=== PATIENT | male | born 1960 | race Caucasian/White ===

== ENCOUNTER 2018-07-21 09:30 | Inpatient (IN) | payer OTHER ==
[~2018-07-21] VITALS: Ht 180.3 cm; Wt 122.7 kg
[2018-07-21] MEDS ORDERED: aspirin 81mg tab.chew PO ONE (09:50)
[2018-07-21 10:28] LABS: BASOPHILS % (AUTO) 0.6 % (0-1); EOSINOPHILS # (AUTO) 0.2 X10'3 (0-0.9); EOSINOPHILS % (AUTO) 2.7 % (0-6); HEMATOCRIT 45.1 % (42.0-52.0); HEMOGLOBIN 15.5 g/dl (14.0-17.9); LYMPHOCYTES # (AUTO) 2.1 X10'3 (1.1-4.8); LYMPHOCYTES % (AUTO) 30.9 % (21-51); MEAN CORPUSCULAR HEMOGLOBIN 30.3 PG (27.0-31.0); MEAN CORPUSCULAR HGB CONC 34.4 % (33.0-36.5); MEAN PLATELET VOLUME 8.6 FL (7.4-10.4); MONOCYTES # (AUTO) 0.5 X10'3 (0-0.9); NEUTROPHILS # (AUTO) 3.9 X10'3 (1.8-7.7); NEUTROPHILS % (AUTO) 57.8 % (42-75); PLATELET COUNT 235 X10'3 (140-440); RED BLOOD COUNT 5.12 X10'6 (4.70-6.10); RED CELL DISTRIBUTION WIDTH 12.9 % (11.5-14.5); WHITE BLOOD COUNT 6.7 X10'3 (4.5-11.0)
[2018-07-21 10:35] LABS: ALANINE AMINOTRANSFERASE 31 U/L (12-78); ALBUMIN 3.9 G/DL (3.4-5.0); ALBUMIN/GLOBULIN RATIO 1.1 (1.1-1.5); ALKALINE PHOSPHATASE 59 IU/L (46-116); ANION GAP 10 (8-16); ASPARTATE AMINO TRANSFERASE 22 U/L (10-37); BILIRUBIN,TOTAL 0.7 MG/DL (0.1-1.0); BLOOD UREA NITROGEN 16 MG/DL (7-18); BUN/CREATININE RATIO 18.6 (5.4-32.0); CHLORIDE 102 MMOL/L (99-107); CREATININE 0.86 MG/DL (0.60-1.10); GLUCOSE 108 MG/DL (70-104); POTASSIUM 3.6 MMOL/L (3.5-5.1); SODIUM 142 MMOL/L (135-145); TOTAL CARBON DIOXIDE 30.4 MMOL/L (24-32); TOTAL PROTEIN 7.4 G/DL (6.4-8.2); eGFR > 90 ML/MIN
[2018-07-21 10:36] LABS: PARTIAL THROMBOPLASTIN TIME 28 SECONDS (22-32); PROTHROMBIN TIME 10.1 SECONDS (9.0-12.0)
[2018-07-21 10:42] LABS: MAGNESIUM 2.1 MG/DL (1.5-2.4)
[2018-07-21] MEDS ORDERED: magnesium hydroxide 30ml (MOM) UD suspension PO PRN (10:55)
[2018-07-21] MEDS ORDERED: magnesium 4gm in 100ml NS 100 ML IV PRN (10:55)
[2018-07-21] MEDS ORDERED: potassium Cl 20 mEq SR tablet PO PRN ×2 (10:55)
[2018-07-21] MEDS ORDERED: potassium Cl 40MEQ/NS 500ml 500 ML IV PRN ×2 (10:55)
[2018-07-21] MEDS ORDERED: mag hydrox/Alum hydrox/simeth 30ml oral suspension PO PRN (10:55)
[2018-07-21] MEDS ORDERED: acetaminophen 325mg tablet PO PRN ×2 (10:55)
[2018-07-21] MEDS ORDERED: magnesium 1gm/100ml D5W IVPB 100 ML IV PRN (10:55)
[2018-07-21] MEDS ORDERED: clindamycin-Cleocin 900mg/D5W 50 ML IV ONE (11:05)
[2018-07-21] MEDS ORDERED: ceFAZolin 1000mg inj ONE (12:22)
[2018-07-21] MEDS ORDERED: lidocaine 1%/epinephrine 1:100,000 injection 50ml vial ONE (12:22)
[2018-07-21] MEDS ORDERED: ceFAZolin 1GM/D5W- ADD-VANTAGE 50 ML IV ONE (12:22)
[2018-07-21] MEDS ORDERED: CHLO25TA2 PO (12:50)
[2018-07-21] MEDS ORDERED: midazolam 2 mg/2 ml injection ONE ×2 (12:52→13:06)
[2018-07-21] MEDS ORDERED: proCHLORperazine 10 MG/2 ml inj ONE (12:52)
[2018-07-21] MEDS ORDERED: fentaNYL/PF 50MCG/1 ML 2ML syringe ONE ×2 (12:53→13:07)
[2018-07-21] MEDS: nystatin 15 GM powder TP SCH ×2 (13:00→20:26)
[2018-07-21] MEDS ORDERED: iohexol 350 MG/ML 50ML vial IV ONE ×2 (13:08→13:23)
[2018-07-21 15:00] VITALS: BP 145/66
[2018-07-21] MEDS ORDERED: heparin, porcine 5000 units/ml vial SQ SCH (16:00)
[2018-07-21] MEDS: K and/or MAG REPLACEMENT MC SCH (18:47)
[2018-07-21 19:00] VITALS: BP 135/48
[2018-07-21] MEDS: zinc oxide ointment 30gm tube TP SCH (20:26)
[2018-07-21 23:00] VITALS: BP 133/55
[2018-07-22] VITALS (9 sets, daily range): BP systolic 131–164; BP diastolic 59–89
[2018-07-22 05:22] LABS: BASOPHILS % (AUTO) 0.3 % (0-1); EOSINOPHILS # (AUTO) 0.2 X10'3 (0-0.9); EOSINOPHILS % (AUTO) 2.5 % (0-6); HEMATOCRIT 43.5 % (42.0-52.0); HEMOGLOBIN 14.9 g/dl (14.0-17.9); LYMPHOCYTES # (AUTO) 2.2 X10'3 (1.1-4.8); LYMPHOCYTES % (AUTO) 28.3 % (21-51); MEAN CORPUSCULAR HEMOGLOBIN 29.6 PG (27.0-31.0); MEAN CORPUSCULAR HGB CONC 34.2 % (33.0-36.5); MEAN CORPUSCULAR VOLUME 86.8 FL (78-98); MEAN PLATELET VOLUME 9.5 FL (7.4-10.4); MONOCYTES # (AUTO) 0.7 X10'3 (0-0.9); NEUTROPHILS # (AUTO) 4.8 X10'3 (1.8-7.7); NEUTROPHILS % (AUTO) 59.9 % (42-75); PLATELET COUNT 232 X10'3 (140-440); RED BLOOD COUNT 5.01 X10'6 (4.70-6.10); RED CELL DISTRIBUTION WIDTH 13.2 % (11.5-14.5); WHITE BLOOD COUNT 7.9 X10'3 (4.5-11.0)
[2018-07-22 05:33] LABS: ALANINE AMINOTRANSFERASE 25 U/L (12-78); ALBUMIN 3.5 G/DL (3.4-5.0); ALBUMIN/GLOBULIN RATIO 1.1 (1.1-1.5); ALKALINE PHOSPHATASE 53 IU/L (46-116); ANION GAP 8 (8-16); ASPARTATE AMINO TRANSFERASE 18 U/L (10-37); BILIRUBIN,TOTAL 0.6 MG/DL (0.1-1.0); BLOOD UREA NITROGEN 15 MG/DL (7-18); CALCIUM 8.7 MG/DL (8.5-10.1); CHLORIDE 106 MMOL/L (99-107); CHOL/HDL RATIO 3.4 (0.00-4.99); CHOLESTEROL 180 MG/DL (0-200); CREATININE 0.88 MG/DL (0.60-1.10); GLUCOSE 105 MG/DL (70-104); HDL CHOLESTEROL 53 MG/DL (35-60); LDL CHOLESTEROL 112 MG/DL (50-100); MAGNESIUM 2.2 MG/DL (1.5-2.4); POTASSIUM 3.7 MMOL/L (3.5-5.1); SODIUM 143 MMOL/L (135-145); TOTAL PROTEIN 6.8 G/DL (6.4-8.2); TRIGLYCERIDES 74 MG/DL (20-135); eGFR 88 ML/MIN
[2018-07-22] MEDS ORDERED: lidocaine 1%/epinephrine 1:100,000 injection 50ml vial ONE (05:55)
[2018-07-22] MEDS ORDERED: clindamycin 600mg/D5W 50ml 50 ML IV ONE (05:55)
[2018-07-22] MEDS ORDERED: clindamycin phosphate 150mg/ml inj. ONE (05:55)
[2018-07-22] MEDS ORDERED: midazolam 2 mg/2 ml injection ONE ×2 (06:12→06:27)
[2018-07-22] MEDS ORDERED: fentaNYL/PF 50MCG/1 ML 2ML syringe ONE ×2 (06:12→06:26)
[2018-07-22] MEDS ORDERED: proCHLORperazine 10 MG/2 ml inj ONE (06:12)
[2018-07-22] MEDS: K and/or MAG REPLACEMENT MC SCH (08:00)
[2018-07-22] MEDS: nystatin 15 GM powder TP SCH ×2 (09:58→13:00)
[2018-07-22] MEDS: zinc oxide ointment 30gm tube TP SCH (09:59)
[2018-07-22] MEDS ORDERED: HYDROcodone/acetaminophen 5mg/325mg tablet PO PRN (11:10)
[2018-07-22] MEDS ORDERED: HYDROcodone/acetaminophen 10/325mg tab PO PRN (11:10)
[2018-07-22] MEDS ORDERED: NYSPWD TP (12:55)
[2018-07-22] MEDS ORDERED: CLIN-5 PO (12:55)
[2018-07-22] MEDS ORDERED: clindamycin 600mg/D5W 50ml IVPB IV SCH (14:00)
[2018-07-22] MEDS ORDERED: sod chloride 0.9% 10ml flush syringe IV SCH (16:00)
[2018-07-22] MEDS ORDERED: ceFAZolin 1GM/D5W- ADD-VANTAGE 50 ML IV SCH (16:00)
== END 2018-07-22 14:30 | disposition home or self-care (01) | DRG 243 ==
LOC: ER 09:30 → ED HOLD 10:55 → PCU 3S 12:20
PROVIDERS: ADMIT Family Medicine; ATTEND Family Medicine
PROC: 0JH606Z Insertion of Pacemaker, Dual Chamber into Chest Subcutaneous Tissue and Fascia, Open Approach (ICD-10-PCS; principal; 2018-07-22)
PROC: 02HK3JZ Insertion of Pacemaker Lead into Right Ventricle, Percutaneous Approach (ICD-10-PCS; 2018-07-22)
PROC: 02H63JZ Insertion of Pacemaker Lead into Right Atrium, Percutaneous Approach (ICD-10-PCS; 2018-07-22)
DX: I44.2 Atrioventricular block, complete (principal); Q26.1 Persistent left superior vena cava; G47.33 Obstructive sleep apnea (adult) (pediatric); E66.01 Morbid (severe) obesity due to excess calories; Z53.8 Procedure and treatment not carried out for other reasons; B35.4 Tinea corporis; G89.29 Other chronic pain; R73.03 Prediabetes; M54.5 Low back pain; F12.90 Cannabis use, unspecified, uncomplicated; I10 Essential (primary) hypertension; Z98.52 Vasectomy status; Z90.49 Acquired absence of other specified parts of digestive tract; Z88.0 Allergy status to penicillin; Z79.899 Other long term (current) drug therapy; Z82.49 Family history of ischemic heart disease and other diseases of the circulatory system; Z80.0 Family history of malignant neoplasm of digestive organs; Z82.3 Family history of stroke; Z68.37 Body mass index [BMI] 37.0-37.9, adult
CPT/HCPCS: 33208; 36415; 71045; 80053; 80061; 83735; 83880; 84443; 84484; 85025; 85610; 85730; 87070; 93005; 93306; 99152; 99153; 99285; A4565; A4620; C1785; C1898; J0690; J0780; J2250; J3010; J3490; Q9967

== ENCOUNTER 2018-09-19 13:06 | Emergency (ER) | payer OTHER ==
[~2018-09-19] VITALS: Ht 180.3 cm; Wt 122.7 kg
[~2018-09-19 13:06] MED LIST: CHLO25TA2 PO; CLIN-5 PO; NYSPWD TP
[2018-09-19 14:04] LABS: BASOPHILS # (AUTO) 0.1 X10'3 (0-0.2); BASOPHILS % (AUTO) 0.9 % (0-1); EOSINOPHILS # (AUTO) 0.3 X10'3 (0-0.9); EOSINOPHILS % (AUTO) 3.1 % (0-6); HEMATOCRIT 44.5 % (42.0-52.0); HEMOGLOBIN 14.7 g/dl (14.0-17.9); LYMPHOCYTES # (AUTO) 2.5 X10'3 (1.1-4.8); LYMPHOCYTES % (AUTO) 23.2 % (21-51); MEAN CORPUSCULAR VOLUME 87.7 FL (78-98); MEAN PLATELET VOLUME 7.6 FL (7.4-10.4); MONOCYTES # (AUTO) 0.8 X10'3 (0-0.9); MONOCYTES % (AUTO) 7.8 % (2-12); PLATELET COUNT 342 X10'3 (140-440); RED BLOOD COUNT 5.08 X10'6 (4.70-6.10); RED CELL DISTRIBUTION WIDTH 13.6 % (11.5-14.5); WHITE BLOOD COUNT 10.8 X10'3 (4.5-11.0)
[2018-09-19 14:22] LABS: ALANINE AMINOTRANSFERASE 36 U/L (12-78); ALBUMIN 3.9 G/DL (3.4-5.0); ALBUMIN/GLOBULIN RATIO 1.1 (1.1-1.5); ALKALINE PHOSPHATASE 88 IU/L (46-116); ANION GAP 11 (8-16); ASPARTATE AMINO TRANSFERASE 23 U/L (10-37); BILIRUBIN,TOTAL 0.3 MG/DL (0.1-1.0); BLOOD UREA NITROGEN 16 MG/DL (7-18); BUN/CREATININE RATIO 17.4 (5.4-32.0); CALCIUM 9.1 MG/DL (8.5-10.1); CHLORIDE 101 MMOL/L (99-107); CREATININE 0.92 MG/DL (0.60-1.10); GLUCOSE 97 MG/DL (70-104); POTASSIUM 3.6 MMOL/L (3.5-5.1); SODIUM 140 MMOL/L (135-145); TOTAL CARBON DIOXIDE 28.4 MMOL/L (24-32); TOTAL PROTEIN 7.6 G/DL (6.4-8.2); eGFR 84 ML/MIN
[2018-09-19 14:23] LABS: INR 0.9 INR; PARTIAL THROMBOPLASTIN TIME 30 SECONDS (22-32); PROTHROMBIN TIME 9.6 SECONDS (9.0-12.0)
[2018-09-19 17:08] VITALS: BP 157/97
== END 2018-09-19 17:39 | disposition home or self-care (01) ==
LOC: ER 13:07
DX: R07.89 Other chest pain (principal); M25.511 Pain in right shoulder; M43.6 Torticollis; R50.9 Fever, unspecified; L90.5 Scar conditions and fibrosis of skin; I10 Essential (primary) hypertension; F12.90 Cannabis use, unspecified, uncomplicated; Z88.0 Allergy status to penicillin; Z79.899 Other long term (current) drug therapy; Z95.0 Presence of cardiac pacemaker
CPT/HCPCS: 36415; 71045; 80053; 84484; 85025; 85610; 85730; 93005; 99284

== ENCOUNTER 2021-05-06 19:29 | Emergency (ER) | payer OTHER ==
[~2021-05-06] VITALS: Ht 182.9 cm; Wt 129.6 kg
[~2021-05-06 19:29] MED LIST changes: +ASPI-1 PO; +ASPI-529 PO; +CHLO25TA10 PO; -CHLO25TA2 PO; -CLIN-5 PO; +HYDR-4383 PO; +MULT-1085 PO; +NAPR220C15 PO; -NYSPWD TP
[2021-05-06] MEDS ORDERED: ketorolac tromethamine 15mg/ml inj. IM ONE (22:15)
[2021-05-06] MEDS ORDERED: HYDROcodone/acetaminophen 5mg/325mg tablet PO ONE (22:15)
[2021-05-06] MEDS ORDERED: ondansetron 4mg rapidly disintigrating tab PO ONE (22:15)
[2021-05-06] MEDS ORDERED: ONDA4TAB6 PO (22:44)
[2021-05-06] MEDS ORDERED: HYDR-3965 PO (22:44)
[2021-05-06 23:20] VITALS: BP 172/94
== END 2021-05-06 23:24 | disposition home or self-care (01) ==
LOC: ER 19:29
DX: M25.562 Pain in left knee (principal); M25.462 Effusion, left knee; I10 Essential (primary) hypertension; F12.90 Cannabis use, unspecified, uncomplicated; Z88.0 Allergy status to penicillin; Z79.82 Long term (current) use of aspirin; Z79.899 Other long term (current) drug therapy
CPT/HCPCS: 29515; 73564; 96372; 99283; J1885

== ENCOUNTER 2024-05-18 11:01 | Day surgery (SDC) | payer OTHER ==
[2024-05-14 11:06] LABS: BASOPHILS # (AUTO) 0.1 X10'3 (0-0.2); BASOPHILS % (AUTO) 0.8 % (0-1); EOSINOPHILS # (AUTO) 0.1 X10'3 (0-0.9); EOSINOPHILS % (AUTO) 1.8 % (0-6); HEMATOCRIT 44.6 % (42.0-52.0); LYMPHOCYTES # (AUTO) 2.8 X10'3 (1.1-4.8); LYMPHOCYTES % (AUTO) 32.9 % (21-51); MEAN CORPUSCULAR HEMOGLOBIN 29.3 PG (27.0-31.0); MEAN CORPUSCULAR HGB CONC 33.6 g/dL (33.0-36.5); MEAN CORPUSCULAR VOLUME 87.3 FL (78-98); MEAN PLATELET VOLUME 8.6 FL (7.4-10.4); MONOCYTES # (AUTO) 0.6 X10'3 (0-0.9); MONOCYTES % (AUTO) 7.1 % (2-12); NEUTROPHILS # (AUTO) 4.8 X10'3 (1.8-7.7); NEUTROPHILS % (AUTO) 57.4 % (42-75); PLATELET COUNT 286 X10'3 (140-440); RED CELL DISTRIBUTION WIDTH 13.9 % (11.5-14.5); WHITE BLOOD COUNT 8.4 X10'3 (4.5-11.0)
[2024-05-14 11:14] LABS: APTT 31 SECONDS (22-32); INR 1.1 INR
[2024-05-14 11:17] LABS: ALBUMIN 3.9 G/DL (3.4-5.0); ANION GAP 9 (8-16); BLOOD UREA NITROGEN 13 MG/DL (7-18); BUN/CREATININE RATIO 13.4 (10.0-20.0); CALCIUM 9.1 MG/DL (8.5-10.1); CHLORIDE 101 MMOL/L (99-107); CHOL/HDL RATIO 2.5 (0.00-4.99); CHOLESTEROL 130 MG/DL (0-200); CREATININE 0.97 MG/DL (0.60-1.10); GLUCOSE 109 MG/DL (70-104); HDL CHOLESTEROL 51 MG/DL (35-60); LDL CHOLESTEROL 64 MG/DL (50-100); POTASSIUM 3.6 MMOL/L (3.5-5.1); SODIUM 138 MMOL/L (135-145); TOTAL CARBON DIOXIDE 27.6 MMOL/L (24-32); TRIGLYCERIDES 118 MG/DL (20-135); eGFR 78 ML/MIN
[2024-05-18] VITALS (11 sets, daily range): BP systolic 108–152; BP diastolic 60–87; PULSE 70; RESP 10–12; TEMP 98.2; O2SAT 93–98
[~2024-05-18] VITALS: Ht 180.3 cm; Wt 125.4 kg
[~2024-05-18 11:01] MED LIST changes: +ONDA4TAB6 PO
[2024-05-18] MEDS: normal saline 1,000 ML IV SCH (11:25)
[2024-05-18] MEDS ORDERED: APIX5TAB3 PO (12:18)
[2024-05-18] MEDS ORDERED: LISI5TAB22 PO (12:19)
[2024-05-18] MEDS ORDERED: ATOR40TA72 PO (12:20)
[2024-05-18] MEDS: diphenhydrAMINE 25mg capsule PO PRN (12:40)
[2024-05-18] MEDS: LORazepam 0.5 MG tablet PO PRN (12:40)
[2024-05-18] MEDS ORDERED: fentaNYL/PF 50MCG/1 ML 2ML syringe ONE (13:14)
[2024-05-18] MEDS ORDERED: midazolam 1 mg/ML 2ml injection ONE ×2 (13:14→13:51)
[2024-05-18] MEDS ORDERED: LIDOcaine 1% (10mg/ml) 2ml vial ONE (13:14)
[2024-05-18] MEDS ORDERED: verapamil 2.5 mg/ml inj IV ONE (13:14)
[2024-05-18] MEDS ORDERED: iohexol 350MG/ML 100ml bottle IV ONE (13:15)
[2024-05-18] MEDS ORDERED: heparin 1,000unit/ml 10ml vial 10 ML ONE (13:15)
[2024-05-18] MEDS ORDERED: nitroGLYCERIN 500mcg/5mL D5W 5 ML IV ONE (13:15)
== END 2024-05-18 17:00 | disposition home or self-care (01) ==
LOC: SSTAY O 11:01
PROVIDERS: ATTEND Student in an Organized Health Care Education/Training Program
DX: R94.39 Abnormal result of other cardiovascular function study (principal); I10 Essential (primary) hypertension; E78.00 Pure hypercholesterolemia, unspecified; E66.01 Morbid (severe) obesity due to excess calories; I48.0 Paroxysmal atrial fibrillation; G47.33 Obstructive sleep apnea (adult) (pediatric); Z79.01 Long term (current) use of anticoagulants; Z79.899 Other long term (current) drug therapy; Z98.84 Bariatric surgery status; Z68.38 Body mass index [BMI] 38.0-38.9, adult; Z88.0 Allergy status to penicillin
CPT/HCPCS: 36415; 80048; 80061; 85025; 85610; 85730; 93005; 93458; 99152; A6258; J1644; J2250; J3010; J3490; J7030; Q0163; Q9967; A6402; C1894